=== PATIENT | female | born 1990 | race Caucasian/White ===

== ENCOUNTER 2016-06-12 20:00 | Emergency (ER) | payer OTHER ==
[2016-06-12] MEDS ORDERED: IOPAMIDOL 300 (61%) 150 ML VIAL IV ONE (20:01)
[2016-06-13 00:13] LABS: SPECIFIC GRAVITY 1.025 (1.001-1.030); URINE APPEARANCE CLEAR; URINE BILIRUBIN NEGATIVE (NEGATIVE); URINE BLOOD NEGATIVE (NEGATIVE); URINE COLOR YELLOW; URINE GLUCOSE (UA) NEGATIVE (NEGATIVE); URINE LEUKOCYTE ESTERASE NEGATIVE (NEGATIVE); URINE NITRITE NEGATIVE (NEGATIVE); URINE PROTEIN TRACE (NEGATIVE); URINE UROBILINOGEN NORMAL (0-1 mg/dl)
[2016-06-13 00:16] LABS: HCG,QUALITATIVE URINE NEGATIVE
[2016-06-13] MEDS ORDERED: PREDNISONE 20 MG TABLET ONE (02:30)
--- NOTE | 2016-06-13 08:19 | CT ---
LUMBAR CT WITH CONTRAST HISTORY: Low back pain with loss of bladder control. History of L4-5 fracture. 125 mL of Isovue-300 intravenous contrast administered. Contiguous axial images acquired from the lower T12 to mid S4 level. FINDINGS: Postsurgical change: Status post L5-S1 fusion and intervertebral cage placement and transpedicular screw and rajesh hardware. Osseous bridging across the L5-S1 facet joints is noted. ALIGNMENT: Grossly unremarkable. DISC SPACES: Preserved. COMPRESSION DEFORMITY: No compression deformity. FRACTURE: No displaced fracture. DISC DEGENERATION: L5-S1: Postsurgical appearance, limited assessment due to streak artifact. L4-5: Suggestion of disc bulge and central disc protrusion, evaluation limited by hardware artifact. L3-4: No focal herniation is present. L2-3: No focal herniation is present. L1-2: No focal herniation is present CANAL STENOSIS: Limited assessment of canal patency at the L4-5 level due to artifact, no high-grade canal stenosis noted elsewhere. FACET JOINTS: Moderate degeneration at the L4-5 level. NEURAL FORAMINA: Moderate narrowing at L4-5 level bilaterally. PARASPINAL SOFT TISSUES: Postsurgical changes of posterior paraspinal soft tissues. POST CONTRAST IMAGING: No abnormal intraspinal enhancement observed. IMPRESSION: 1. Status post L5-S1 fusion, hardware limiting evaluation at the L4-5 and L5-S1 levels. 2. No fracture identified. 3. Findings suggesting disc bulge and central disc protrusion at L4-5 with potential for canal stenosis, consider CT myelography for further evaluation. MRI is another consideration, but significant hardware artifact is anticipated. Preliminary report relayed to the Emergency Medicine medical service by Dr. Coulter on 06/13/2016 at 0055 hours. Findings were discussed with Dr. Bernal on the date of exam at 0812 hours.
== END 2016-06-13 02:57 | disposition home or self-care (01) ==
LOC: ED 20:00
DX: M54.9 Dorsalgia, unspecified (principal); R32 Unspecified urinary incontinence; W19.XXXA Unspecified fall, initial encounter; Y92.9 Unspecified place or not applicable
CPT/HCPCS: 81025; 81003; 72132; 99283 ×2; J7512; Q9967